=== PATIENT | male | born 1995 | race Hispanic/Latino ===

== ENCOUNTER 2017-04-07 08:39 | Emergency (ER) | payer MEDICAID ==
[2017-04-07 08:45] VITALS: BP 127/78; PULSE 87; TEMP 97; O2SAT 98
[2017-04-07 08:47] VITALS: BMI 25.0
[2017-04-07 09:12] LABS: BASO # 0.1 K/uL (0.0-0.2); BASO % 1.1 % (0.0-2.0); EOS # 0.1 K/uL (0.0-0.7); EOS % 1.1 % (0.0-4.0); HEMATOCRIT 39.3 % (35.0-51.0); LYMPH # 1.8 K/uL (1.0-4.3); LYMPH % 30.3 % (20.0-40.0); MEAN CELL VOLUME 88.7 fl (80.0-94.0); MEAN CORPUSCULAR HEMOGLOBIN 29.5 pg (27.0-31.0); MEAN CORPUSCULAR HGB CONC 33.3 g/dL (33.0-37.0); MEAN PLATELET VOLUME 9.1 fl (7.2-11.7); MONO # 0.5 K/uL (0.0-0.8); MONO % 8.9 % (0.0-10.0); NEUT # 3.6 K/uL (1.8-7.0); NEUT % 58.6 % (50.0-75.0); RED CELL DISTRIBUTION WIDTH 13.1 % (11.5-14.5)
--- NOTE | 2017-04-07 09:20 | ED PDOC ---
HPI: Psych/Substance Abuse Time Seen by Provider: 04/07/17 08:54 Chief Complaint (Nursing): Alcohol Ingestion Chief Complaint (Provider): I got drunk History Per: Patient, EMS History/Exam Limitations: no limitations Current Symptoms Are (Timing): Better Modifying Factor(s): Alcohol Severity: Mild Involuntary Hold By: Emergency Physician Additional Complaint(s): 21yo male per EMS was found in the basement of a building under construction this morning when workers arrived, appeared intoxicated and was "sweeping the floors". Past Medical History Reviewed: Historical Data, Nursing Documentation, Vital Signs Vital Signs: Last Vital Signs Temp 97 F L 04/07/17 08:42 Pulse 87 04/07/17 08:42 Resp BP 127/78 04/07/17 08:42 Pulse Ox 98 04/07/17 08:42 - Medical History PMH: No Chronic Diseases - Surgical History Surgical History: No Surg Hx - Family History Family History: States: Unknown Family Hx - Living Arrangements Living Arrangements: Other (in [employer]) - Social History Alcohol: Occasional - Allergies Allergies/Adverse Reactions: Allergies Allergy/AdvReac Type Severity Reaction Status Date / Time No Known Allergies Allergy Verified 04/07/17 08:53 Review of Systems ROS Statement: Except As Marked, All Systems Reviewed And Found Negative Constitutional: Negative for: Fever, Chills Cardiovascular: Negative for: Chest Pain, Palpitations Respiratory: Negative for: Cough, Shortness of Breath Gastrointestinal: Negative for: Nausea, Vomiting Genitourinary Male: Negative for: Dysuria, Frequency Musculoskeletal: Negative for: Neck Pain Skin: Negative for: Rash, Lesions Neurological: Negative for: Weakness, Numbness Physical Exam - Reviewed Nursing Documentation Reviewed: Yes Vital Signs Reviewed: Yes - Physical Exam Appears: Positive for: Well, Non-toxic, No Acute Distress Head Exam: Positive for: ATRAUMATIC, NORMAL INSPECTION, NORMOCEPHALIC Skin: Positive for: Normal Color, Warm, DRY Eye Exam: Positive for: EOMI, Normal appearance, PERRL ENT: Positive for: Normal ENT Inspection Neck: Positive for: Normal, Painless ROM Cardiovascular/Chest: Positive for: Regular Rate, Rhythm Respiratory: Positive for: CNT, Normal Breath Sounds Gastrointestinal/Abdominal: Positive for: Normal Exam, Bowel Sounds, Soft Back: Positive for: Normal Inspection Extremity: Positive for: Normal ROM Neurologic/Psych: Positive for: Alert, Oriented - Laboratory Results Result Diagrams: 04/07/17 09:02 04/07/17 09:02 - ECG O2 Sat by Pulse Oximetry: 98 Medical Decision Making Medical Decision Making: cooperative, gait stable in ED. Check labs and dispo pending. 935a awake, ambulating steady gait. Does not want to stay in hospital. In [employer], states hes on leave and wants to see family. Is not driving, states will take Uber to his brothers in [place]. Patient has been cooperative, respectful and does not appear clinically intoxicated. DC from ED. Disposition - Clinical Impression Clinical Impression: Alcohol abuse with intoxication - Patient ED Disposition Is Patient to be Admitted: No Counseled Patient/Family Regarding: Studies Performed, Diagnosis, Need For Followup - Disposition Referrals: [facility] [Outside] Disposition: Routine/Home Disposition Time: 09:40 Condition: STABLE Additional Instructions: Avoid alcohol. Do not drive for next 8 hours. Instructions: Alcohol Intoxication (ED) Forms: [employer] (Sinhala)
[2017-04-07 09:21] LABS: ALB/GLOB RATIO 1.6 (1.0-2.1); ALCOHOL SERUM 190 mg/dl (0-10); ALKALINE PHOSPHATASE 81 U/L (38-126); ALT/SGPT 36 U/L (21-72); AST/SGOT 31 U/L (17-59); BILIRUBIN,TOTAL 0.3 mg/dl (0.2-1.3); BLOOD UREA NITROGEN 14 mg/dl (9-20); CALCIUM 9.7 mg/dL (8.4-10.2); CARBON DIOXIDE 25 mmol/L (22-30); CHLORIDE 109 mmol/L (98-107); GFR AFRICAN-AMERICAN > 60; GLUCOSE,RANDOM 94 mg/dL (75-110); POTASSIUM 4.6 MMOL/L (3.6-5.0); SODIUM 149 mmol/l (132-148); TOTAL PROTEIN 8.3 G/DL (6.3-8.2)
== END 2017-04-07 09:41 | disposition home or self-care (01) ==
LOC: H.ER 08:39
DX: F10.129 Alcohol abuse with intoxication, unspecified (principal)